=== PATIENT | female | born 1945 | race Caucasian/White ===

== ENCOUNTER 2019-02-05 10:58 | Inpatient (IN) ==
--- NOTE | 2019-02-05 11:31 | PROVIDER DOCUMENTATION ---
HPI-Abdominal Pain/GI Problem - General Chief Complaint: N/V/D Stated Complaint: NVD Time Seen by Provider: 02/05/19 11:11 Source: patient Allergies/Adverse Reactions: Patient Allergies Allergy/AdvReac Type Severity Reaction Status Date / Time ciprofloxacin [From Cipro] Allergy Severe HIVES Verified 02/05/19 11:17 ciprofloxacin HCl * Allergy Severe HIVES Verified 02/05/19 11:17 [From Cipro] duloxetine HCl * Allergy Severe HEADACHE Verified 02/05/19 11:17 [From Cymbalta] Sulfa (Sulfonamide Allergy Severe SWELLING Verified 02/05/19 11:17 Antibiotics) adhesive tape Allergy Intermediate blisters Verified 02/05/19 11:17 benzoin Allergy Intermediate BLISTERS Verified 02/05/19 11:17 celecoxib [From Celebrex] Allergy Intermediate muscle Verified 02/05/19 11:17 weakness chlordiazepoxide Allergy Intermediate RASH Verified 02/05/19 11:17 [From Librax (with clidinium)] chlordiazepoxide HCl * Allergy Intermediate RASH Verified 02/05/19 11:17 [From Librium] clidinium bromide * Allergy Intermediate RASH Verified 02/05/19 11:17 [From Librax (with clidinium)] cyclobenzaprine HCl * Allergy Intermediate HIVES Verified 02/05/19 11:17 [From Flexeril] doxepin HCl * [From Sinequan] Allergy Intermediate RASH Verified 02/05/19 11:17 ofloxacin [From Floxin] Allergy Intermediate HIVES Verified 02/05/19 11:17 rofecoxib [From Vioxx] Allergy Intermediate muscle Verified 02/05/19 11:17 weakness simvastatin [From Zocor] Allergy Intermediate muscle Verified 02/05/19 11:17 weakness solifenacin succinate * Allergy Intermediate muscle Verified 02/05/19 11:17 [From Vesicare] weakness trospium chloride * Allergy Intermediate ITCHING Verified 02/05/19 11:17 [From Sanctura XR] venlafaxine HCl * Allergy Intermediate confusion Verified 02/05/19 11:17 [From Effexor] doxycycline Allergy Mild neuropathy Verified 02/05/19 11:17 metoclopramide HCl * Allergy Mild neuropathy Verified 02/05/19 11:17 [From Reglan] codeine Allergy NAUSEA/VOMI Verified 02/05/19 11:17 TING levofloxacin [From Levaquin] Allergy HIVES Verified 02/05/19 11:17 morphine Allergy ANAPHYLAXIS Verified 02/05/19 11:17 ranitidine HCl * Allergy HIVES Verified 02/05/19 11:17 [From Zantac] Home Medications: Home Medication List Medication Instructions Recorded Confirmed Last Taken Type Alprazolam [Xanax] 1 mg PO Q6HR PRN 02/01/16 05/15/18 Unknown History Aspirin [Aspirin EC] 81 mg PO QAM 02/01/16 05/15/18 Unknown History Fluoxetine HCl [Prozac] 20 mg PO QAM 02/01/16 05/15/18 Unknown History Ipratropium/Albuterol INH 1 puff INH RTQ6H 02/01/16 05/11/18 Unknown History [Combivent Respimat Inhaler] Magnesium 250 mg PO QAM 02/01/16 05/11/18 Unknown History Meclizine HCl [Antivert] 25 mg PO TID PRN 02/01/16 05/11/18 Unknown History Metformin [Glucophage] 500 mg PO BID 02/01/16 05/11/18 Unknown History Montelukast Sodium [Singulair] 10 mg PO QAM 02/01/16 05/15/18 Unknown History Atenolol [Tenormin] 25 mg PO BID 05/11/18 05/15/18 Unknown History Dexlansoprazole [Dexilant] 60 mg PO DAILY 05/11/18 05/15/18 Unknown History Hydrocodone/APAP 10 mg/325 mg 1 each PO BID PRN 05/11/18 05/15/18 Unknown History [Raphine-10] Levothyroxine Sodium 75 mcg PO DAILY@0700 05/11/18 05/15/18 Unknown History Mirabegron [Myrbetriq] 50 mg PO DAILY 05/11/18 05/15/18 Unknown History - History of Present Illness-ABD Nature of Presenting Problems: reports that pt has n/vd seen by pcp yesterday. at night, she had high bp (unable to tell) then bp dropped low diastolic number given by pt is 40. reported that she might had a seizure and her neck pain. history of seizure and not on seizure medicine. but take xanax to for anxiety per her neurologist. denied fever and chlls, cp, sob. Review of Systems - Adult - REVIEW OF SYSTEMS - ADULT Constitutional: reports: no symptoms reported Eyes: reports: no symptoms reported Ears, Nose, Mouth & Throat: reports: no symptoms reported Cardiovascular: reports: no symptoms reported Respiratory: reports: no symptoms reported Gastrointestinal: reports: no symptoms reported Genitourinary: reports: no symptoms reported Musculoskeletal: reports: no symptoms reported Integumentary: reports: no symptoms reported Neurological: reports: no symptoms reported Psychiatric: reports: no symptoms reported Endocrine: reports: no symptoms reported Hematologic/Lymphatic: reports: no symptoms reported Allergic/Immunologic: reports: no symptoms reported All Other Systems: Reviewed and Negative Past History - Adult - PAST MEDICAL HISTORY-ADULT Review of Records: reports: Old Records Reviewed, Nursing Assessment Review, Medications Reviewed, Social history reviewed & non-contributory. Major Childhood Illnesses: reports: denies history Cardiovascular: reports: IN (HX OF IN 2012) Respiratory: reports: denies history Gastrointestinal: reports: denies history Obstetrical/Gynecological: reports: other (SEE HPI had surgery x 3 weeks ago) Genitourinary: reports: denies history Musculoskeletal: reports: denies history Neurological: reports: denies history Psychiatric: reports: denies history Endocrine/Immune: reports: cancer (hx of lymphoma in 10 yrs ago but never had chemo or radiation. She has had breast cancer 1990 and had chemo), Lymphoma, thyroid disorder ([id number]) Other Conditions: reports: denies history - PRIOR SURGERIES/PROCEDURES Surgical/Procedure History: reports: recent surgery (as stated in HPI) - IMMUNIZATION STATUS Childhood Immunizations: See Nurse Assessment Flu Vaccine: See Nurse Assessment - FAMILY HISTORY Family History: reviewed, not pertinent - SOCIAL HISTORY Smoking: denies Substance Use: none/never Alcohol Use Frequency: never Living Situation: family Physical Exam-General - PHYSICAL EXAM-ADULT Initial Vital Signs Reviewed: Yes - CONSTITUTIONAL General Appearance: appears well, alert, no apparent distress, other - EYES Eyes: PERRL/EOMI, pink conjunctivae - HEAD, EARS, NOSE, MOUTH & THROAT HENMT: normocephalic/atraumatic, moist mucous membranes, normal ENT inspection - NECK Neck: non-tender, full range of motion - RESPIRATORY Respiratory: chest non-tender, lungs clear, normal breath sounds - CARDIOVASCULAR Cardiovascular: normal peripheral pulses, regular rate, rhythm, no edema - GASTROINTESTINAL (ABDOMEN) Abdominal Exam: normal bowel sounds, tenderness (ruq area, history of cholecystectomy) - MUSCULOSKELETAL Back Exam: normal inspection, no CVA tenderness, no vertebral tenderness Extremity: normal range of motion, non-tender, normal gait - SKIN Integumentary: normal color, normal turgor, warm/dry - NEUROLOGIC Neurologic: grossly normal, no motor/sensory deficits - PSYCHIATRIC Psych/Mental Status: normal mood/affect, oriented x 3 Progress - PLAN OF CARE/RESULTS Progress/Plan/Lab Results: Vital Signs - 8 hr 02/05/19 11:10 Temperature 98.8 F Pulse Rate 70 Respiratory Rate 18 Blood Pressure 137/84 O2 Sat by Pulse Oximetry 98 Orders Category Date Time Status FSBS [Finger Stick Blood Sugar (ED)] DIRECTED Care 02/05/19 11:[address] ABD/PELVIS W/IV CONT ONLY [CT] Stat Exams 02/05/19 11:16 Ordered CBC WITH ELECTRONIC DIFF [HEME] Stat Lab 02/05/19 11:16 Uncollected COMPREHENSIVE METABOLIC PANEL [CHEM] Stat Lab 02/05/19 11:16 Uncollected LIPASE [CHEM] Stat Lab 02/05/19 11:16 Uncollected MAGNESIUM [CHEM] Stat Lab 02/05/19 11:16 Uncollected Result Diagrams: 02/05/19 11:34 02/05/19 11:34 - CONSULTS/PCP/HOSPITALIST Notification #1 *Consult/PCP/Hospitalist*: Polly GREEN Time Discussed: 13:07 (hyponatremia) Consult Disposition: Admit Departure - Departure Date of Disposition Decision: 02/05/19 Time of Disposition Decision: 13:07 DIAGNOSIS: Hyponatremia Disposition: ADMITTED INPATIENT 09 Certified Medical Emergency: Emergent Condition: Stable Referrals and Follow-Ups: Lizzy Rubio MD [Primary Care Provider] - - Critical Care Note This patient required my direct & personal management of CC.: No Attestation - Physician/ KRISTIAN Attestation The physician spent face to face time with patient:: Yes Advanced Practice Provider documentation review:: Supervising physician onsite and consulted in the evaluation and care of this patient. The physician did have a face to face encounter with the patient.
[2019-02-05 11:45] LABS: BASO# 0.02 X1000 (0.0-0.2); BASO% 0.2 % (0.0-0.8); EOS# 0.03 X1000 (0.0-0.7); EOS% 0.3 % (0.0-10.0); HEMATOCRIT 41.3 % (37.0-47.0); HEMOGLOBIN 14.9 g/dL (12.0-16.0); IMM GRAN# 0.03 X1000 (0.0-0.04); IMM GRAN% 0.3 % (0.0-0.5); LYMPH# 1.09 X1000 (1.2-3.4); LYMPH% 10.5 % (20.5-51.1); MCHC 36.1 g/dL (33-37); MCV 77.5 FL (81-99); MONO# 0.76 X1000 (0.11-0.59); MONO% 7.3 % (1.7-9.3); MPV 9.3 FL (7.4-10.4); NEUT# 8.43 X1000 (1.4-6.5); NEUT% 81.4 % (42.2-75.2); PLT 476 X1000 (130-400); RBC 5.33 XMIL (4.2-5.4); RDW 12.1 % (11.5-14.5); WBC 10.36 X1000 (4.8-10.8)
[2019-02-05 12:24] LABS: AGAP 17; ALB/GLOB RATIO 1.6; ALKALINE PHOSPHATASE 60 U/L (32-104); BUN 6 mg/dL (8-22); CALCIUM 9.8 mg/dL (8.8-10.2); CHLORIDE 80 mmol/L (98-107); COSMO 243; CREATININE 0.7 mg/dL (0.5-0.9); ESTIMATED GFR > 60; GLUCOSE 194 mg/dL (70-104); GOT 15 U/L (10-30); GPT 9 U/L (10-36); LIPASE 43 U/L (13-60); MAGNESIUM 1.5 mg/dL (1.5-2.7); POTASSIUM 3.5 mmol/L (3.5-5.1); TCO2 22 mmol/L (25-35); TOTAL BILIRUBIN 0.41 mg/dL (0.20-1.00); TOTAL PROTEIN 8.2 g/dL (6.3-8.3)
[2019-02-05 12:26] LABS: SODIUM 119 mmol/L (136-145)
[2019-02-05] MEDS ORDERED: NS 1,000 ML IV ONE ×2 (13:05→14:07)
[2019-02-05] MEDS ORDERED: ZOFRAN IV PRN (13:31)
[2019-02-05] MEDS ORDERED: PHENERGAN PR PRN ×2 (14:11→14:12)
--- NOTE | 2019-02-05 14:19 | Diag Imaging Result Doc PS360 ---
EXAM: CT ABD/PELVIS W/IV CONT ONLY INDICATION: abd pain TECHNIQUE: This exam was performed using automated exposure control, adjustment of mA or kV according to patient size, and/or use of iterative reconstruction technique. COMPARISON: 08/28/2016 FINDINGS: There is subsegmental atelectasis at the lung bases. There has been a prior cholecystectomy. There is a 1.6 cm low dense lesion at the lower tip of the liver. It is nonspecific but is completely stable as compared to the previous study in 2016. The liver is essentially unremarkable, otherwise. The spleen, pancreas, and adrenal glands are unremarkable. The kidneys and urinary bladder are unremarkable. There has been a prior hysterectomy. The appendix is normal. There is no bowel wall thickening identified. There are a few mildly prominent loops of small bowel in the left upper quadrant that are nonspecific. There is no obstructive bowel pattern. The remainder of the GI tract is grossly unremarkable. No focal inflammatory changes, free abdominal gas, or free fluid is identified. The bony structures are intact. IMPRESSION: 1.A few minimally prominent loops of small bowel in the left upper quadrant with small air-fluid levels that are nonspecific, possibly representing mild ileus. No sign of obstruction. 2.Other incidental/nonacute findings detailed above. Electronically signed by Servando Chadwick 02/05/2019 2:17 PM
--- NOTE | 2019-02-05 14:20 | Diag Imaging Result Doc PS360 ---
EXAM: CT HEAD W/O CONTRAST INDICATION: seizure TECHNIQUE: This exam was performed using automated exposure control, adjustment of mA or kV according to patient size, and/or use of iterative reconstruction technique. COMPARISON: 10/21/2012 FINDINGS: There is mild age-appropriate diffuse brain atrophy. There is no definite acute infarct given the limited sensitivity of CT versus MRI. There is no discrete intracranial mass, mass effect, or intracranial hemorrhage. The surrounding soft tissues and bony structures are essentially unremarkable. IMPRESSION: Mild age-appropriate brain atrophy. No evidence of acute intracranial pathology. Electronically signed by Servando Chadwick 02/05/2019 2:17 PM
--- NOTE | 2019-02-05 15:02 | HISTORY AND PHYSICAL ---
CHIEF COMPLAINT: Nausea, vomiting, diarrhea. HISTORY OF PRESENT ILLNESS: This is a 73-year-old female with a past medical history of hypertension, gastroesophageal reflux disease, diabetes mellitus type 2, and hyponatremia. She reports being evaluated yesterday by her primary care physician, Dr. Rubio, who felt that she had a virus,prescribed Flagyl, increase fluids. She does state that she is able to take in fluids through this time, just no solid food. She was found to have a sodium of 119. She denied any black or bloody vomitus or stools. She was found to have a sodium of 119. She was hospitalized in May 2018 and found to be hyponatremic, it was felt that Prozac could be a component and once held, her sodium did increase. PAST MEDICAL HISTORY: 1. Hypertension. 2. Breast cancer, status post mastectomies. 3. Hyperlipidemia. 4. Diabetes mellitus type 2. 5. Recurrent hyponatremia. 6. Asthma. 7. Chronic obstructive pulmonary disease. 8. Chronic kidney disease stage 2. 9. Prior seizures secondary to low sodium. 10. Hypothyroid. PAST SURGICAL HISTORY: 1. Cholecystectomy. 2. Hysterectomy. 3. Mastectomy. 4. Right knee fracture repair. SOCIAL HISTORY: She smokes about a pack a day. She denies alcohol or illicit drug use. ALLERGIES: Allergies are multiple - Cipro, Cymbalta, sulfa, adhesive tape, benzoin, Celebrex, Librax, Librium, Flexeril, Sinequan, Floxin, Vioxx, Zocor, VESIcare, Sanctura, Effexor, doxycycline, Reglan, codeine, Levaquin, morphine, and Zantac. HOME MEDICATIONS: A list will be obtained by the nursing staff and once verified, we will review and restart as is appropriate. REVIEW OF SYSTEMS: Discussed with the patient with pertinent positives stated in the HPI. She denied any syncope or dizziness, any chest pain, palpitations, any night sweats, persistent cough, any constipation, black or bloody vomitus or stools, any hematuria, dysuria, frequency, urgency. PHYSICAL EXAMINATION: GENERAL: This is a 73-year-old female who is lying on the stretcher in the emergency room, in no distress. VITAL SIGNS: Blood pressure is 137/84, with a heart rate of 73, respirations are 16, temperature is 98.8 degrees oral, with room air saturations of 97-98%. EYES: Pupils are equal, round, and react to light. EOMs are intact. Sclerae are anicteric. HENT: Head is normocephalic, atraumatic. Mucous membranes are moist. NECK: Supple, with trachea midline. She has full range of motion. PULMONARY: Breath sounds are clear with no increased work of breathing noted. Chest rises and falls symmetrically with respiration. Chest wall is nontender to palpation. CARDIOVASCULAR: Regular rate and rhythm. S1 and S2 are appreciated. She has no lower extremity edema. Peripheral pulses are palpable x4 extremities. Calves are nontender to palpation. GASTROINTESTINAL: Abdomen is soft. She is tender to the right upper quadrant to epigastric area. Bowel sounds in all 4 quadrants. GENITOURINARY: She has no CVA nor suprapubic tenderness. SKIN: Warm and dry with good turgor. NEUROLOGIC: She is alert and oriented x3. LABS: WBC is 10.3, with hemoglobin 14.9, hematocrit 41.3, and platelets of 476,000. Sodium is 119, potassium 3.5, BUN 6, creatinine 0.7, with a glucose of 194. CT of the head and CT of the abdomen and pelvis are pending from the ER. ASSESSMENT: 1. Hyponatremia. NS 75ml/hr, BMP q4h. Check urine electrolytes. 2. Nausea, vomiting, and diarrhea. IV hydration 3. Diabetes mellitus type 2. PBG/SSI 4. History of hypertension. 5. Gastroesophageal reflux. 6. Chronic obstructive pulmonary disease with no exacerbation. 7. Reported chronic kidney disease stage 2. 8. Hypothyroid. PLAN: The patient will be admitted to the hospital. She will be placed on telemetry. Update and confirm her home medications, and restart as is appropriate. DVT prophylaxis, SCDs GI prophylaxis, PPI. Further treatments pending hospital course. Dictated by PETER Bolanos for Reji Calabrese MD cc: PETER Bolanos Agree with the above. the following is my own face to face assessment. patient with reported nausea/vomiting/diarrhea at home. none observed since arrival to the hospital. hyponatremia with multiple possible etiologies. SIADH related to antidepressant is a strong possibility. there have been concerns about psychogenic polydipsia previously although the patient denies this. possibly some aspect of mild dehydration but no vomiting/diarrhea for several hours, not markedly dehydrated on my exam, and BUN/creatinine baseline so this is less likely. will gently hydrate initially given reports of N/V/D, but if sodium worsens then may need to fluid restrict and/or consult nephrology for possible samsca therapy. checking thyroid studies. cont PPI monitor blood pressure place on sliding scale insulin and monitor glucose. MTDD
[2019-02-05 16:49] LABS: AGAP 14; ALBUMIN 4.6 g/dL (3.5-5.0); BUN 4 mg/dL (8-22); CALCIUM 9.1 mg/dL (8.8-10.2); CHLORIDE 80 mmol/L (98-107); COSMO 240; CREATININE 0.7 mg/dL (0.5-0.9); ESTIMATED GFR > 60; GLUCOSE 212 mg/dL (70-104); PHOSPHORUS 2.8 mg/dL (2.7-4.5); POTASSIUM 3.8 mmol/L (3.5-5.1); TCO2 23 mmol/L (25-35)
[2019-02-05 16:50] LABS: SODIUM 117 mmol/L (136-145)
[2019-02-05] MEDS: NORCO-10 PO PRN (18:30)
[2019-02-05] MEDS: XANAX PO PRN (18:32)
[2019-02-05] MEDS: DULCOLAX PR SCH ×2 (18:33→21:01)
[2019-02-05] MEDS: HUMALOG SUBQ SCH ×2 (18:33→21:00)
[2019-02-05 22:14] LABS: URINE SOURCE CLEAN CATCH
[2019-02-05 22:52] LABS: BILIRUBIN URINE NEGATIVE (NEGATIVE); BLOOD URINE SMALL (NEGATIVE); COLOR STRAW; GLUCOSE URINE 150 mg/dL (NEGATIVE); KETONE URINE TRACE mg/dL (NEGATIVE); LEUKOCYTES URINE NEGATIVE (NEGATIVE); NITRITE URINE NEGATIVE (NEGATIVE); PH URINE 6.5; PROTEIN URINE TRACE mg/dL (NEGATIVE); SP GRAVITY URINE 1.018; TURBIDITY URINE CLEAR (CLEAR); UR EPITHELIAL CELLS <10 /HPF (<10); URINE BACTERIA NEGATIVE /HPF; URINE RBC <10 /HPF (<10); URINE WBC <10 /HPF (<10); UROBILINOGEN URINE NORMAL (NORMAL)
[2019-02-05 23:56] LABS: ESTIMATED GFR > 60
[2019-02-06 00:14] LABS: AGAP 15; BUN 5 mg/dL (8-22); CALCIUM 8.9 mg/dL (8.8-10.2); CHLORIDE 86 mmol/L (98-107); COSMO 246; CREATININE 0.6 mg/dL (0.5-0.9); GLUCOSE 119 mg/dL (70-104); POTASSIUM 3.3 mmol/L (3.5-5.1); SODIUM 123 mmol/L (136-145); TCO2 22 mmol/L (25-35)
[2019-02-06] MEDS: XANAX PO PRN ×3 (02:38→21:12)
[2019-02-06] MEDS: MBX SOLUTION MT PRN ×2 (02:39→10:18)
[2019-02-06] MEDS: DULCOLAX PR SCH ×2 (02:44→10:12)
[2019-02-06 04:08] LABS: ALLEN TEST YES; BE 2.4 mmoll (-3.0-3.0); BLOOD TYPE ARTERIAL; HCO3-(ACT) 26.7 mmoll (20.0-26.0); METHB 0.9 % (0.0-1.5); O2(CT) 18.6 mL/dL (15.0-23.0); O2HB 94.9 % (95.0-99.0); PCO2(98.6) 38 mmHg (35-45); PO2(98.6) 72 mmHg (60-100); SAMPLE BLOOD; SAO2 97.3 % (95.0-100.0); THB 13.9 g/dL (11.5-17.4); pH(98.6) 7.45 (7.35-7.45)
[2019-02-06 04:09] LABS: MODALITY ROOM AIR
[2019-02-06 04:10] LABS: ESTIMATED GFR > 60
[2019-02-06 04:51] LABS: AGAP 11; BUN 5 mg/dL (8-22); CALCIUM 9.1 mg/dL (8.8-10.2); CHLORIDE 86 mmol/L (98-107); COSMO 245; CREATININE 0.6 mg/dL (0.5-0.9); GLUCOSE 133 mg/dL (70-104); POTASSIUM 2.9 mmol/L (3.5-5.1); SODIUM 122 mmol/L (136-145); TCO2 25 mmol/L (25-35)
[2019-02-06] MEDS ORDERED: KLOR-CON PO ONE (04:56)
[2019-02-06] MEDS: NS 1,000 ML IV SCH (05:15)
[2019-02-06] MEDS ORDERED: MAGNESIUM SULFATE 2 GM/S.W.I. 2 GM/50 ML IVPB IV ONE (05:27)
[2019-02-06] MEDS ORDERED: POTASSIUM CHLORIDE 20 MEQ/SWI 20 MEQ/100 ML IVPB IV ONE (05:28)
[2019-02-06] MEDS: HUMALOG SUBQ SCH ×4 (06:43→21:15)
--- NOTE | 2019-02-06 07:22 | Diag Imaging Result Doc PS360 ---
EXAM: KUB ABDOMEN 02/06/2019 HISTORY: nausea TECHNIQUE: KUB COMMENT: There are surgical clips in the right upper quadrant. There is a fibrotic scar in the posterior costophrenic sulcus of the right lower lobe. There is some gas and fecal debris throughout the colon without evidence of dilatation. The stomach and small bowel are not distended. There is no evidence of organomegaly or mass. There are no definite abnormal calcifications. The regional skeleton appears to be intact. IMPRESSION: Nonspecific abdomen. Electronically signed by Ruel Woods 02/06/2019 7:19 AM
[2019-02-06 07:50] LABS: HEMATOCRIT 38.7 % (37.0-47.0); HEMOGLOBIN 13.9 g/dL (12.0-16.0); MCH 28.1 PG (27-31); MCHC 35.9 g/dL (33-37); MCV 78.2 FL (81-99); MPV 9.2 FL (7.4-10.4); RBC 4.95 XMIL (4.2-5.4); RDW 12.3 % (11.5-14.5); WBC 8.69 X1000 (4.8-10.8)
[2019-02-06] MEDS: NORCO-10 PO PRN ×2 (10:17→21:11)
[2019-02-06] MEDS ORDERED: ANTIVERT PO PRN (12:24)
[2019-02-06 12:27] LABS: AGAP 10; BUN 6 mg/dL (8-22); CHLORIDE 92 mmol/L (98-107); COSMO 252; CREATININE 0.7 mg/dL (0.5-0.9); ESTIMATED GFR > 60; GLUCOSE 145 mg/dL (70-104); POTASSIUM 3.9 mmol/L (3.5-5.1); SODIUM 125 mmol/L (136-145); TCO2 23 mmol/L (25-35)
--- NOTE | 2019-02-06 12:52 | PROGRESS NOTE ---
DATE: 02/06/2019 INTERVAL HISTORY: No acute event overnight. The patient states he had a bowel movement overnight. She was receiving intravenous fluid resuscitation following which her sodium had started improving. SUBJECTIVE: The patient states that she is feeling much better now than she had been when she came in with. She mentioned to me that she does have prior history of irritable bowel syndrome, and she underwent upper and lower endoscopy a month prior which was essentially unremarkable. A gastric emptying study was planned for her chronic nausea, which she has not been able to get done. She tells me that she has had chronic diarrhea because of her irritable bowel syndrome. We discussed about her low electrolytes. We discussed about her CAT scan finding, and I answered all of her questions. OBJECTIVE: Vital Signs: Temperature 98.3 degrees, pulse 61, respiratory rate 16, blood pressure 100/39, and saturating 95% on room air. General: She appears volume depleted with sunken eyeballs, not in any acute distress. HEENT: Oral cavity is dry. Lungs: Air entry bilaterally equal. No wheeze, rhonchi, or crackles. Cardiovascular: S1, S2 normal. No murmur, rub, or gallop. Abdomen: Soft and nontender. She does not have lower extremity edema. She does have some aphthous ulcers. Neurologic: She is drowsy but arousable and alert. She is able to engage in meaningful conversation. She is oriented x3. LABORATORY DATA: Her CBC was unremarkable in the morning time. ABG was also unremarkable. Repeat chemistry performed suggests improving hyponatremia, hypochloremia and improving hypokalemia. Her blood sugars are in acceptable range as well. No new microbiological data. IMAGING: Abdominal x-ray had nonspecific bowel gas pattern. ASSESSMENT AND PLAN: 1. Acute encephalopathy on presentation in the setting of severe electrolyte derangement including hyponatremia, hypokalemia and hypochloremia in the setting of subacute persistent intractable nausea, occasional vomiting and diarrhea in the setting of irritable bowel syndrome. Continue intravenous fluid resuscitation at current rate for hypovolemic, hyponatremia. Follow up with frequent BMP, and follow-up electrolytes as needed. If her diarrhea or nausea recurs during hospital admission, I would consult GI. Otherwise, I would advise her to follow up with her outpatient avionics repair technician. 2. Others: Continue home alprazolam for anxiety, aspirin and atenolol for essential hypertension, levothyroxine for hypothyroidism, meclizine for chronic dizziness, mirabegron for urinary incontinence, sliding scale insulin for history of [id number] diabetes mellitus. I will hold lansoprazole as it can cause diarrhea. I will also decrease levothyroxine dose considering her free T4 is slightly high, and TSH is slightly low which can contribute to diarrhea. Plan of care were discussed with the patient. All of her questions have been answered. I tried to reach out to patient's sister who is listed in the chart and have left a voice message. cc: Dillan Richard MD
[2019-02-06] MEDS: DUONEB (A & A) INH SCH ×2 (16:48→21:10)
[2019-02-06] MEDS: TENORMIN PO SCH (21:11)
[2019-02-07] MEDS: NS 1,000 ML IV SCH (00:07)
[2019-02-07 00:25] LABS: AGAP 11; BUN 6 mg/dL (8-22); CALCIUM 9.1 mg/dL (8.8-10.2); CHLORIDE 101 mmol/L (98-107); COSMO 270; CREATININE 0.7 mg/dL (0.5-0.9); ESTIMATED GFR > 60; GLUCOSE 114 mg/dL (70-104); POTASSIUM 3.6 mmol/L (3.5-5.1); SODIUM 136 mmol/L (136-145); TCO2 24 mmol/L (25-35)
[2019-02-07] MEDS: DUONEB (A & A) INH SCH ×4 (05:20→21:00)
[2019-02-07] MEDS: HUMALOG SUBQ SCH ×4 (06:28→21:14)
[2019-02-07] MEDS: SYNTHROID PO SCH (06:28)
[2019-02-07] MEDS ORDERED: SYNTHROID PO SCH (07:00)
[2019-02-07] MEDS: TENORMIN PO SCH ×2 (08:27→21:14)
[2019-02-07] MEDS: MYRBETRIQ E.R. PO SCH (08:27)
[2019-02-07] MEDS: ASPIRIN EC PO SCH (08:28)
[2019-02-07] MEDS: XANAX PO PRN ×3 (08:54→23:52)
[2019-02-07] MEDS: NORCO-10 PO PRN ×2 (08:54→23:52)
[2019-02-07 12:19] LABS: AGAP 11; BUN 6 mg/dL (8-22); CALCIUM 8.7 mg/dL (8.8-10.2); CHLORIDE 102 mmol/L (98-107); COSMO 272; CREATININE 0.6 mg/dL (0.5-0.9); ESTIMATED GFR > 60; GLUCOSE 170 mg/dL (70-104); POTASSIUM 3.5 mmol/L (3.5-5.1); SODIUM 135 mmol/L (136-145); TCO2 22 mmol/L (25-35)
[2019-02-07] MEDS: ANALPRAM HC CREAM PR SCH ×2 (14:50→21:15)
[2019-02-07] MEDS ORDERED: LOMOTIL PO PRN (16:40)
--- NOTE | 2019-02-07 18:32 | PROGRESS NOTE ---
DATE: 02/07/2019 INTERVAL HISTORY: No acute overnight events overnight. Her vitals were largely unremarkable. She continues to have loose bowel movement, however she is feeling better. We discussed about CT scan and abdominal x-ray findings. Discussed about possible pathophysiology, which might have led to this profound electrolyte abnormalities and answered all of her questions. The patient currently denies any chest pain or shortness of breath or any nausea or vomiting. VITAL SIGNS: Temperature of 98 degrees, pulse 63, respiratory rate 20, blood pressure 120/66, saturating 100% on room air. PHYSICAL EXAMINATION: General: She does not appear in any acute distress. She appears well hydrated today. HEENT: Oral cavity is moist. Respiratory: Air entry bilaterally equal. No wheeze, rhonchi, crackles. Cardiovascular: S1, S2 normal. No murmur, rub or gallop. Abdomen: Soft nontender. Tympanic to percussion. No lower extremity edema. Her aphthous ulcers are better. Neurologic: She is alert and oriented x3. LABORATORY DATA: BMP suggestive of resolution of hyponatremia and resolution of hypochloremia. Her kidney function and electrolytes and blood sugars have been in acceptable range. No microbiological data. IMAGING: No imaging data, except abdominal x-ray which was done yesterday, which had nonspecific abdomen. ASSESSMENT AND PLAN: 1. Acute encephalopathy on presentation in the setting of severe electrolyte derangement including hyponatremia, severe hypokalemia and hypochloremia in the setting of subacute persistent intractable nausea, occasional vomiting and diarrhea in the setting of irritable bowel syndrome with suspicious acute viral gastroenteritis now improving. She is alert and oriented x3 at the moment. Stop intravenous fluid resuscitation. Start patient on GI soft diet. Follow up with BMP tomorrow. She should follow up with outpatient domestic maid. I would also consider starting her on Lomotil if she continues to have diarrhea tomorrow. 2. Others, continue home alprazolam for anxiety, aspirin and atenolol for essential hypertension, levothyroxine for hypothyroidism the dose of which I have decreased considering slightly higher T4 and low TSH. Continue meclizine for chronic dizziness and mirabegron for urinary incontinence and sliding scale insulin for history of diabetes mellitus. 3. Disposition: Patient remains inside the hospital as I monitor her on GI soft diet and off intravenous fluids. If she continues to do better, my plan is to discharge her home tomorrow with outpatient Gastroenterology followup. Plan of care discussed with her. All of her questions have been answered. cc: Dillan Richard MD
[2019-02-08] MEDS: DUONEB (A & A) INH SCH ×3 (04:06→15:31)
[2019-02-08] MEDS: SYNTHROID PO SCH (06:54)
[2019-02-08] MEDS: HUMALOG SUBQ SCH ×2 (06:55→11:20)
[2019-02-08 07:46] LABS: AGAP 11; BUN 9 mg/dL (8-22); CALCIUM 8.9 mg/dL (8.8-10.2); CHLORIDE 105 mmol/L (98-107); COSMO 281; CREATININE 0.8 mg/dL (0.5-0.9); ESTIMATED GFR > 60; GLUCOSE 117 mg/dL (70-104); POTASSIUM 3.7 mmol/L (3.5-5.1); SODIUM 141 mmol/L (136-145); TCO2 25 mmol/L (25-35)
[2019-02-08] MEDS: ASPIRIN EC PO SCH (09:08)
[2019-02-08] MEDS: ANALPRAM HC CREAM PR SCH (09:08)
[2019-02-08] MEDS: TENORMIN PO SCH (09:08)
[2019-02-08] MEDS: MYRBETRIQ E.R. PO SCH (09:08)
[2019-02-08] MEDS: MBX SOLUTION MT PRN (10:30)
[2019-02-08] MEDS: XANAX PO PRN (11:20)
[2019-02-08] MEDS: NORCO-10 PO PRN (11:20)
[2019-02-08] MEDS ORDERED: MAALOX PLUS LIQUID PO ONE (15:01)
[2019-02-08 15:14] VITALS: BP 135/50
--- NOTE | 2019-02-08 18:37 | DISCHARGE SUMMARY ---
ADMISSION DATE: 02/05/2019 DISCHARGE DATE: 02/08/2019 DISCHARGE DISPOSITION: Home. DISCHARGE DIAGNOSES: 1. Acute encephalopathy due to severe electrolyte derangement. 2. Severe hyponatremia. 3. Hypokalemia. 4. Intractable nausea and vomiting and diarrhea prior to presentation 5. Irritable bowel syndrome with persistent gastrointestinal symptoms. 6. Chronic anxiety. 7. Thyrotoxicosis without any crisis. OTHER DIAGNOSES: 1. History of essential hypertension. 2. History of breast cancer status post mastectomy. 3. Hyperlipidemia. 4. Diabetes mellitus type 2. 5. History of recurrent hyponatremia leading to seizure in the past. 6. History of chronic kidney disease stage 2. 7. History of chronic obstructive pulmonary disease. 8. Chronic gastroesophageal reflux disease. DISCHARGE MEDICATIONS: 1. Alprazolam 1 mg every 6 hours as needed for anxiety 5 tablets have been prescribed. 2. Meclizine 25 mg p.o. t.i.d. as needed for dizziness. 3. Aspirin 81 mg in the morning. 4. Combivent Respimat inhaler 1 puff routinely every 6 hours. 5. Dexlansoprazole 60 mg daily. 6. Metformin 500 mg b.i.d. 7. Magnesium 250 mg in the morning time. 8. Mirabegron (Myrbetriq) 50 mg daily. 9. [place] 10, 1 tablet b.i.d. p.r.n. 10.Montelukast 10 mg in the morning. 11.Atenolol 25 mg b.i.d. 12.Levothyroxine 50 mcg daily. DISCHARGE PHYSICAL EXAMINATION: Vital Signs: Temperature 97.9, pulse 61, respiratory rate 13, blood pressure 154/61, saturating 100% on room air. General: The patient does not appear in any acute distress. HEENT: Oral cavity is moist. Lungs: Air entry bilaterally equal. No wheeze, rhonchi or crackles. Cardiovascular: S1 and S2 normal. No murmur or gallop. Abdomen: Soft and nontender. Extremities: No lower extremity edema. Neurologic: She is alert and oriented x3. SIGNIFICANT LABS DURING HOSPITAL ADMISSION: On admission and during hospital course, the patient did not have leukocytosis, with a WBC count of 8.6, hemoglobin of 13.9, and platelets 449. On presentation, her sodium was 119, which after intravenous fluid resuscitation at the time of discharge was 141. Her potassium was 3.3, which increased to 3.7. Chloride was 86, which was 105 at the time of discharge. Her BUN was 9, creatinine 0.8. Her blood sugar was 131. Microbiology: No significant data. IMAGING: On admission, abdomen and pelvis CT had a few minimally prominent loops of small intestine in the left lower quadrant with small air fluid levels which were nonspecific. Could represent mild ileus without any signs of obstruction. Head CT: There was mild age-appropriate brain atrophy without any evidence of acute intracranial pathology. Abdomen x- ray did not have any specific abnormalities. HOSPITAL COURSE SUMMARY: Ms. Herrera is a 73-year-old lady with a past medical history of irritable bowel syndrome and chronic anxiety who was experiencing nausea, vomiting and diarrhea of 3-4 days' duration, for which she had visited her primary care doctor. She was advised to increase her p.o. fluid intake and was asked to get fasting lab tests done 2 days later; however, the patient's symptoms got so much worse and she started becoming confused, so she decided to come to the emergency room. She was also given Flagyl by her primary care doctor. She denied noticing any blood in the vomitus or stool. When she came to the emergency room she was found to have a sodium of 119, and so she was admitted for further management. The patient was started on intravenous fluid resuscitation with close monitoring of her electrolytes, and her electrolytes were repleted. During hospital admission, initially she was kept on a clear liquid diet, at which time she was having diarrhea. Later on in the course, her electrolytes had become normal, and she was tolerating a GI soft diet well. Her sodium had also become normal. She was found to have a low TSH, and so her levothyroxine dose was decreased, and she was advised to follow up with her regular doctor. On admission she was also a little confused, and it was found to be secondary to significant hyponatremia. CT scan of head was unremarkable. After intravenous fluid resuscitation, she has become alert and oriented x3. At the time of discharge, she did not have any nausea, vomiting or diarrhea. The patient was advised to follow up with her regular bi technical lead, Dr. Rosales, in the next 3-5 days, and discuss about this admission. All of her questions have been answered. More than 30 minutes was spent in discharging this patient. cc: Dillan Richard MD MTD
== END 2019-02-08 16:13 | disposition home or self-care (01) | DRG 641 ==
LOC: SUPCPDRO → ED 10:58 → SUATTDRO 14:09 → 3N 14:09
PROVIDERS: ATTEND Internal Medicine
CPT/HCPCS: 70450; 74000; 74018; 74177; 80048; 80053; 80069; 81001; 82570; 82805; 82948; 83605; 83690; 83735; 83935; 84300; 84439; 84443; 85025; 85027; 94640; 94761; 99285; A9270; J1815; J2405; J3475; J3480; J7030; Q9967; XXXXX